=== PATIENT | female | born 1965 | race Caucasian/White ===

== ENCOUNTER 2021-08-21 11:14 | Outpatient (REF) | payer SELFPAY ==
--- NOTE | 2021-08-21 11:45 | MHC.AU.FUR ---
Hearing Instrument Follow-Up Date of Visit: 08/21/21 Supplier Quality Engineer Used: Not Applicable Right Ear: [place]: [employer] Model: 380 P BTE Serial Number: [id number] Repair Warranty: Battery Size: 675 Color: Beige Tubing: Tube Lock Type of Mold: Shell Follow-Up Summary: Patient seen walk in. Has not been seen since 2016. Tubing of the right aid broke off the earmold. Changed the tubing, cleaned aid, microphone, and contacts. Patient reports good sound quality. Paid $10.00 Recommendations: Hearing instrument follow-up or maintenance as needed. Please contact our clinic with any questions or concerns. Diagnosis Code(s): Primary Diagnosis: H90.3 Bilateral Sensorineural Hearing Loss Services Performed: [facility] Non-Quantity Charges: HACHECKM (MH>1 yr or new to us) Face to Face appointment Signature: Provider: Anamaria June, CCC-A
== END 2021-08-21 11:15 | disposition home or self-care (01) ==
LOC: HO.HAP 11:14
DX: Z46.1 Encounter for fitting and adjustment of hearing aid (principal); H90.3 Sensorineural hearing loss, bilateral
CPT/HCPCS: 92592; 99499

== ENCOUNTER 2023-01-15 13:27 | Outpatient (REF) | payer SELFPAY | END 2023-01-15 13:28 | disposition home or self-care (01) | LOC: HO.HAP 13:27 | DX: Z13.89 Encounter for screening for other disorder (principal) ==

== ENCOUNTER 2023-01-16 13:36 | Outpatient (REF) | payer SELFPAY | END 2023-01-16 13:37 | disposition home or self-care (01) | LOC: HO.HAP 13:36 | DX: H90.3 Sensorineural hearing loss, bilateral (principal); Z46.1 Encounter for fitting and adjustment of hearing aid | CPT/HCPCS: 92593 ==